=== PATIENT | male | born 1965 | race Caucasian/White ===

== ENCOUNTER 2019-06-16 07:16 | Outpatient (CLI) | payer SELFPAY ==
[2019-06-16 08:13] LABS: ALBUMIN 4.1 g/dL (3.2-5.5); ALBUMIN/GLOBULIN RATIO 1.3 (1.0-2.2); ALKALINE PHOSPHATASE 52 IU/L (42-121); ALT ALANINE AMINOTRANSFERASE 34 IU/L (10-60); AST ASPARTATE AMINOTRANSFERASE 38 IU/L (10-42); BILIRUBIN,TOTAL 0.8 mg/dL (0.2-1.0); BUN - BLOOD UREA NITROGEN 19 mg/dL (6-20); CALCIUM 8.9 mg/dL (8.5-10.3); CARBON DIOXIDE - CO2 29 mmol/L (21-32); CHLORIDE 104 mmol/L (101-111); CHOL/HDL RATIO 4.3 (<5.0); CHOLESTEROL 246 mg/dL; CRP HIGH SENSITIVITY 3.5 mg/L; GFR - MDRD 78 (>89); GLUCOSE 104 mg/dL (70-100); HB2 TOTAL 14.5 g/dL; HDL CHOLESTEROL 57 mg/dL; HEMOGLOBIN A1C 0.54 g/dL; HEMOGLOBIN A1C % 5.6 % (4.6-6.2); LDL CHOLESTEROL,CALCULATED 180 mg/dL; LDL/HDL RATIO 3.2 (<3.6); SODIUM 140 mmol/L (135-145); TOTAL PROTEIN 7.3 g/dL (6.7-8.2); VLDL CHOLESTEROL 9 mg/dL
[2019-06-16 08:33] LABS: THYROID STIMULATING HORMONE 8.36 uIU/mL (0.34-5.60)
[2019-06-16 08:36] LABS: FREE T4 (FREE THYROXINE) 0.56 ng/dL (0.58-1.64)
== END 2019-06-16 07:17 | disposition home or self-care (01) ==
LOC: LAB 07:16
PROVIDERS: ATTEND Naturopath
DX: E06.3 Autoimmune thyroiditis (principal)
CPT/HCPCS: 36415; 80053; 80061; 81599; 83036; 83525; 83721; 84439; 84443; 84481; 84482; 86141; 86376; 86800